=== PATIENT | male | born 1955 | race Caucasian/White ===

== ENCOUNTER 2017-07-26 22:35 | Observation (INO) | payer MEDICAID ==
[2017-07-26] MEDS ORDERED: NS 1,000 ML IV ONE (22:39)
[2017-07-26] MEDS ORDERED: TDAP ADULT 0.5 ML INJ (BOOSTRIX) IM ONE (22:44)
[2017-07-26 22:47] LABS: PLATELET COUNT 281 10^3/uL (150-400)
--- NOTE | 2017-07-26 22:48 | CPEKG ---
Heart Rate: 99 RR Interval: 606 P-R Interval: 180 QRSD Interval: 90 QT Interval: 388 QTC Interval: 498 P Homeworth: 59 QRS [place]: 58 T Wave Home[place]: 42 EKG Severity - BORDERLINE ECG - EKG Impression: SINUS RHYTHM EKG Impression: BORDERLINE PROLONGED QT INTERVAL Electronically Signed By: Krysta Velasquez 28-Jul-2017 05:52:54
--- NOTE | 2017-07-26 23:29 | EDPHY ---
H & P Stated Complaint: mechanical fall +LOC Time Seen by Provider: 07/26/17 22:38 HPI/ROS: HPI The patient presents with 2 falls which occurred just prior to arrival, he is brought in by ambulance from the [facility] where he is lives for the last 4 years. He does admit to drinking alcohol tonight and had a fall which occurred by the bunk beds which was witnessed. It is unclear if there was loss of consciousness. He had a 2nd fall while using the bathroom which was associated with loss of consciousness shortly thereafter. Upon arrival of the medics, patient's blood pressure was 70s over palp. He was started on a L of normal saline. Denies any headache, neck pain, fever. He says in general, he has been feeling dizzy and lightheaded for the last several weeks. He has not had much to eat or drink today besides alcohol. REVIEW OF SYSTEMS Constitutional: No fever, no chills. Eyes: No discharge. ENT: No sore throat. Cardiovascular: No chest pain, no palpitations. Respiratory: No cough, no shortness of breath. Gastrointestinal: No abdominal pain, no vomiting. Genitourinary: No hematuria. Musculoskeletal: No back pain. Skin: No rashes. Neurological: No headache. PMHx: Hypertension, BPH, attention deficit hyperactivity disorder; he is on an antihypertensive, does not recall the name, he is on medication for BPH, no history of alcohol withdrawal Soc Hx: Homeless, lives at the [facility] for years he says, drinks alcohol daily, 5 drinks today PHYSICAL General Appearance: Alert, disheveled, poor hygiene Head: There is a 2.5 cm oblique laceration of the right forehead Eyes: Pupils equal and round no pallor or injection ENT, Mouth: Mucous membranes dry Respiratory: There are no retractions, lungs are clear to auscultation Cardiovascular: Regular rate and rhythm Gastrointestinal: Abdomen is soft and non-tender, no masses, bowel sounds normal Neurological: A&O, moves all extremities Skin: Warm and dry, excoriations to both upper extremities Musculoskeletal: Neck is supple non tender Extremities: symmetrical, full range of motion Psychiatric: Patient is oriented X 3, there is no agitation Source: Patient, EMS Exam Limitations: Intoxication - Personal History Current Tetanus/Diphtheria Vaccine: Unsure Current Tetanus Diphtheria and Acellular Pertussis (TDAP): Unsure - Medical/Surgical History Hx Asthma: No Hx Chronic Respiratory Disease: No Hx Diabetes: No Hx Cardiac Disease: No Hx Renal Disease: No Hx Cirrhosis: No Hx Alcoholism: No Hx HIV/AIDS: No Hx Splenectomy or Spleen Trauma: No - Social History Smoking Status: Current every day smoker Constitutional: Initial Vital Signs Temperature (C) 36.8 C 07/26/17 22:36 Heart Rate 101 H 07/26/17 22:36 Respiratory Rate 20 07/26/17 22:36 Blood Pressure 95/69 L 07/26/17 22:36 O2 Sat (%) 94 07/26/17 22:36 O2 Delivery Mode Room Air Allergies/Adverse Reactions: No Known Allergies Allergy (Unverified 01/22/16 11:26) Medical Decision Making - Diagnostics EKG Interpretation: EKG: Complete interpretation has been separately recorded in the [facility] archive. Summary impression: Normal sinus rhythm with QTC of approximately 460 Imaging Results: Imaging Impressions Chest X-Ray 07/26/17 22:38 Impression: Shallow inspiration. Chest negative for acute cardiopulmonary abnormality. Head CT 07/26/17 22:53 Impression: 1. Negative for intracranial hemorrhage. 2. Mild atrophy and probable white matter small vessel ischemic disease. A preliminary report was called to the emergency department at 2320 hours Imaging: Discussed imaging studies w/ call specialist Radiologist, I viewed and interpreted images myself Procedures: LACERATION REPAIR Procedure: Laceration repair. Verbal consent was obtained from the patient. The linear 2.5 cm laceration on the right forehead was anesthetized using bupivacaine with epinephrine. The wound was scrubbed, draped and explored to its base with a gloved finger. There were no deep structures involved. No tendon injury was identified. . The wound was repaired with a combination of simple interrupted and horizontal mattress sutures using 5-0 nylon. The wound repair was simple. The procedure was performed by myself. Differential Diagnosis: This is a 62-year-old male with history of alcohol abuse, hypertension, BPH, homelessness who presents brought in by ambulance from the [facility] for 2 falls which occurred just prior to arrival. Patient is unclear if he lost consciousness though cannot recall details of the events so this is suspicious for syncope versus seizure. However 1st event was witnessed and there was no seizure-like activity. He does report feeling lightheaded for the last several weeks. Differential diagnosis includes vasovagal syncope, arrhythmia, dehydration, infection, medication affect. He is on an antihypertensive and initial blood pressure was quite low in the 70 systolic. He is also on something for BPH which could be lowering his blood pressure as well. In the emergency department, I met the paramedics at the bedside to obtain their report. Patient was given 1 L of normal saline. Labs were checked and did reveal hyponatremia and hypochloremia. This could be related to hydrochlorothiazide use, however patient is not sure of his medications. Could also be related to dehydration. Glucose was slightly low at 60s so we gave him something to eat. EKG shows QT prolonged, this could also be the source of his ALOC from arrhythmia leading to syncope. CT scan of his head was unremarkable. He will be admitted. I have the discussed the case with Dr. Jordan who will admit the patient. - Data Points Laboratory Results: Laboratory Results 07/26/17 22:40 07/26/17 22:40 07/26/17 07/26/17 07/26/17 23:35 23:35 22:40 WBC RBC Hgb Hct MCV MCH MCHC RDW Plt Count MPV Neut % (Auto) Lymph % (Auto) [place] % (Auto) Eos % (Auto) Baso % (Auto) Nucleat RBC Rel Count Absolute Neuts (auto) Absolute Lymphs (auto) Absolute Monos (auto) Absolute Eos (auto) Absolute Basos (auto) Absolute Nucleated RBC Immature Gran % Immature Gran # Sodium 126 mEq/L L mEq/L (135-145) Potassium 4.1 mEq/L mEq/L (3.5-5.2) Chloride 88 mEq/L L mEq/L (97-110) Carbon Dioxide 28 mEq/l mEq/l (22-31) Anion Gap 10 mEq/L mEq/L (8-16) BUN 9 mg/dL mg/dL (7-23) Creatinine 1.0 mg/dL mg/dL (0.7-1.3) Estimated GFR > 60 Glucose 64 mg/dL L mg/dL (70-100) Calcium 8.7 mg/dL mg/dL (8.5-10.4) Total Bilirubin 0.3 mg/dL mg/dL (0.1-1.4) AST 71 IU/L H IU/L (17-59) ALT 40 IU/L IU/L (21-72) Alkaline Phosphatase 44 IU/L IU/L (38-126) Total Protein 5.5 g/dL L g/dL (6.3-8.2) Albumin 3.4 g/dL L g/dL (3.5-5.0) Urine Color PALE YELLOW Urine Appearance CLEAR Urine pH 7.0 (5.0-7.5) Ur Specific [place] 1.004 (1.002-1.030) Urine Protein NEGATIVE (NEGATIVE) Urine Ketones NEGATIVE (NEGATIVE) Urine Blood NEGATIVE (NEGATIVE) Urine Nitrate NEGATIVE (NEGATIVE) Urine Bilirubin NEGATIVE (NEGATIVE) Urine Urobilinogen NEGATIVE EU EU (0.2-1.0) Ur Leukocyte Esterase NEGATIVE (NEGATIVE) Urine Osmolality 197 mosmo/kg L mosmo/kg (300-900) Ur Random Creatinine 38.7 mg/dL mg/dL Ur Random Sodium 36 mEq/L mEq/L (30-90) Urine Glucose NEGATIVE (NEGATIVE) Urine Opiates Screen NEGATIVE ng/mL ng/mL (NEGATIVE) Urine Barbiturates NEGATIVE ng/mL ng/mL (NEGATIVE) Ur Phencyclidine Scrn NEGATIVE ng/mL ng/mL (NEGATIVE) Ur Amphetamines Screen NEGATIVE ng/mL ng/mL (NEGATIVE) U Benzodiazepines Scrn NEGATIVE ng/mL ng/mL (NEGATIVE) Urine Cocaine Screen NEGATIVE ng/mL ng/mL (NEGATIVE) U Marijuana (THC) Screen 668 ng/mL ng/mL (NEGATIVE) Ethyl Alcohol 151 mg/dL H mg/dL (0-10) 07/26/17 22:40 WBC 8.23 10^3/uL 10^3/uL (3.80-9.50) RBC 3.84 10^6/uL L 10^6/uL (4.40-6.38) Hgb 12.4 g/dL L g/dL (13.7-17.5) Hct 34.6 % L % (40.0-51.0) MCV 90.1 fL fL (81.5-99.8) MCH 32.3 pg pg (27.9-34.1) MCHC 35.8 g/dL g/dL (32.4-36.7) RDW 12.4 % % (11.5-15.2) Plt Count 281 10^3/uL 10^3/uL (150-400) MPV 9.9 fL fL (8.7-11.7) Neut % (Auto) 63.9 % % (39.3-74.2) Lymph % (Auto) 20.0 % % (15.0-45.0) [place] % (Auto) 8.4 % % (4.5-13.0) Eos % (Auto) 6.4 % % (0.6-7.6) Baso % (Auto) 0.7 % % (0.3-1.7) Nucleat RBC Rel Count 0.0 % % (0.0-0.2) Absolute Neuts (auto) 5.25 10^3/uL 10^3/uL (1.70-6.50) Absolute Lymphs (auto) 1.65 10^3/uL 10^3/uL (1.00-3.00) Absolute Monos (auto) 0.69 10^3/uL 10^3/uL (0.30-0.80) Absolute Eos (auto) 0.53 10^3/uL H 10^3/uL (0.03-0.40) Absolute Basos (auto) 0.06 10^3/uL 10^3/uL (0.02-0.10) Absolute Nucleated RBC 0.00 10^3/uL 10^3/uL (0-0.01) Immature Gran % 0.6 % % (0.0-1.1) Immature Gran # 0.05 10^3/uL 10^3/uL (0.00-0.10) Sodium Potassium Chloride Carbon Dioxide Anion Gap BUN Creatinine Estimated GFR Glucose Calcium Total Bilirubin AST ALT Alkaline Phosphatase Total Protein Albumin Urine Color Urine Appearance Urine pH Ur Specific [place] Urine Protein Urine Ketones Urine Blood Urine Nitrate Urine Bilirubin Urine Urobilinogen Ur Leukocyte Esterase Urine Osmolality Ur Random Creatinine Ur Random Sodium Urine Glucose Urine Opiates Screen Urine Barbiturates Ur Phencyclidine Scrn Ur Amphetamines Screen U Benzodiazepines Scrn Urine Cocaine Screen U Marijuana (THC) Screen Ethyl Alcohol Medications Given: Melatonin (Melatonin) 3 mg PO HS PRN PRN Reason: Sleep/Insomnia Stop: 01/23/18 02:07 Last Admin: 07/27/17 02:27 Dose: 3 mg Thiamine HCl (Vitamin B-1) 100 mg PO DAILY EVA Stop: 01/23/18 00:59 Last Admin: 07/27/17 02:27 Dose: 100 mg Discontinued Medications Diphtheria/Tetanus/Acell Pertussis (Boostrix) 0.5 ml IM .ONCE ONE Stop: 07/26/17 22:45 Last Admin: 07/26/17 22:48 Dose: 0.5 ml Sodium Chloride (Ns) 1,000 mls @ 0 mls/hr IV EDNOW ONE; Wide Open PRN Reason: Protocol Stop: 07/26/17 22:40 Last Admin: 07/26/17 22:42 Dose: 1,000 mls Departure - Departure Disposition: [facility]patient Acute Clinical Impression: Hyponatremia, Hypochloremia, QT prolongation Alcohol intoxication Qualifiers: Complication of substance-induced condition: uncomplicated Qualified Code(s): F10.920 - Alcohol use, unspecified with intoxication, uncomplicated Syncope Qualifiers: Syncope type: unspecified Qualified Code(s): R55 - Syncope and collapse Forehead laceration Qualifiers: Encounter type: initial encounter Qualified Code(s): S01.81XA - Laceration without foreign body of other part of head, initial encounter Condition: Fair
[2017-07-27] MEDS ORDERED: ACETAMINOPHEN 325 MG TAB PO PRN (00:05)
[2017-07-27] MEDS ORDERED: ONDANSETRON 4 MG/2 ML VIAL IVP PRN (00:05)
[2017-07-27] MEDS ORDERED: ONDANSETRON DISINTEGRATING 4 MG TAB PO PRN (00:05)
--- NOTE | 2017-07-27 00:33 | PDGENHP ---
History and Physical - Chief Complaint Syncope - History of Present Illness 62 yo M w/ hx of HTN, depression, and ETOH abuse presents after syncope. Patient was brought in by EMS from the longterm after witnessed syncopal event. Patient does not remember the event but does recall riding in the ambulance. He admits to having 3 shots and a few beers prior to the episode. He tells me he usually doesn't drink liquor and that he doesn't handle it well. He explains he has had a similar episode after drinking liquor before. In the ED work-up was notable for hypoglycemia and hyponatremia. CTH without acute changes. Patient is being admitted for observation. History Information - Allergies/Home Medication List Allergies/Adverse Reactions: No Known Allergies Allergy (Unverified 01/22/16 11:26) I have personally reviewed and updated: family history, medical history - Past Medical History hypertension - Surgical History Reports: no pertinent surgical hx - Family History Positive for: CAD, stroke - Social History Smoking Status: Current every day smoker Review of Systems Review of Systems: ROS: 10pt was reviewed & negative except for what was stated in HPI & below Physical Exam Physical Exam: Temp Pulse Resp BP Pulse Ox 36.8 C 101 H 20 95/69 L 94 07/26/17 22:36 07/26/17 22:36 07/26/17 22:36 07/26/17 22:36 07/26/17 22:36 Constitutional: not in pain, unkempt Eyes: PERRL, EOMI Ears, Nose, Mouth, Throat: moist mucous membranes, no oral mucosal ulcers Cardiovascular: regular rate and rhythym, no murmur, rub, or gallop Respiratory: no respiratory distress, clear to auscultation Gastrointestinal: normoactive bowel sounds, soft, non-tender abdomen Skin: warm, normal color Musculoskeletal: full muscle strength, no muscle tenderness Neurologic: AAOx3, CN II-XII Intact Psychiatric: interacting appropriately, not anxious Lab Data & Imaging Review 07/26/17 22:40 07/26/17 22:40 WBC 8.23 10^3/uL (3.80-9.50) 07/26/17 22:40 RBC 3.84 10^6/uL (4.40-6.38) L 07/26/17 22:40 Hgb 12.4 g/dL (13.7-17.5) L 07/26/17 22:40 Hct 34.6 % (40.0-51.0) L 07/26/17 22:40 MCV 90.1 fL (81.5-99.8) 07/26/17 22:40 MCH 32.3 pg (27.9-34.1) 07/26/17 22:40 MCHC 35.8 g/dL (32.4-36.7) 07/26/17 22:40 RDW 12.4 % (11.5-15.2) 07/26/17 22:40 Plt Count 281 10^3/uL (150-400) 07/26/17 22:40 MPV 9.9 fL (8.7-11.7) 07/26/17 22:40 Neut % (Auto) 63.9 % (39.3-74.2) 07/26/17 22:40 Lymph % (Auto) 20.0 % (15.0-45.0) 07/26/17 22:40 [place] % (Auto) 8.4 % (4.5-13.0) 07/26/17 22:40 Eos % (Auto) 6.4 % (0.6-7.6) 07/26/17:40 Baso % (Auto) 0.7 % (0.3-1.7) 07/26/17:40 Nucleat RBC Rel Count 0.0 % (0.0-0.2) 07/26/17 22:40 Absolute Neuts (auto) 5.25 10^3/uL (1.70-6.50) 07/26/17 22:40 Absolute Lymphs (auto) 1.65 10^3/uL (1.00-3.00) 07/26/17 22:40 Absolute Monos (auto) 0.69 10^3/uL (0.30-0.80) 07/26/17 22:40 Absolute Eos (auto) 0.53 10^3/uL (0.03-0.40) H 07/26/17 22:40 Absolute Basos (auto) 0.06 10^3/uL (0.02-0.10) 07/26/17 22:40 Absolute Nucleated RBC 0.00 10^3/uL (0-0.01) 07/26/17 22:40 Immature Gran % 0.6 % (0.0-1.1) 07/26/17 22:40 Immature Gran # 0.05 10^3/uL (0.00-0.10) 07/26/17 22:40 Sodium 126 mEq/L (135-145) L 07/26/17 22:40 Potassium 4.1 mEq/L (3.5-5.2) 07/26/17 22:40 Chloride 88 mEq/L (97-110) L 07/26/17 22:40 Carbon Dioxide 28 mEq/l (22-31) 07/26/17 22:40 Anion Gap 10 mEq/L (8-16) 07/26/17 22:40 BUN 9 mg/dL (7-23) 07/26/17 22:40 Creatinine 1.0 mg/dL (0.7-1.3) 07/26/17 22:40 Estimated GFR > 60 07/26/17 22:40 Glucose 64 mg/dL (70-100) L 07/26/17 22:40 Calcium 8.7 mg/dL (8.5-10.4) 07/26/17 22:40 Total Bilirubin 0.3 mg/dL (0.1-1.4) 07/26/17 22:40 AST 71 IU/L (17-59) H 07/26/17 22:40 ALT 40 IU/L (21-72) 07/26/17 22:40 Alkaline Phosphatase 44 IU/L (38-126) 07/26/17 22:40 Total Protein 5.5 g/dL (6.3-8.2) L 07/26/17 22:40 Albumin 3.4 g/dL (3.5-5.0) L 07/26/17 22:40 Urine Color PALE YELLOW 07/26/17 23:35 Urine Appearance CLEAR 07/26/17 23:35 Urine pH 7.0 (5.0-7.5) 07/26/17 23:35 Ur Specific [place] 1.004 (1.002-1.030) 07/26/17 23:35 Urine Protein NEGATIVE (NEGATIVE) 07/26/17 23:35 Urine Ketones NEGATIVE (NEGATIVE) 07/26/17 23:35 Urine Blood NEGATIVE (NEGATIVE) 07/26/17 23:35 Urine Nitrate NEGATIVE (NEGATIVE) 07/26/17 23:35 Urine Bilirubin NEGATIVE (NEGATIVE) 07/26/17 23:35 Urine Urobilinogen NEGATIVE EU (0.2-1.0) 07/26/17 23:35 Ur Leukocyte Esterase NEGATIVE (NEGATIVE) 07/26/17 23:35 Urine Glucose NEGATIVE (NEGATIVE) 07/26/17 23:35 Ethyl Alcohol 151 mg/dL (0-10) H 07/26/17 22:40 Imaging Review: Imaging Impressions Chest X-Ray 07/26/17 22:38 Impression: Shallow inspiration. Chest negative for acute cardiopulmonary abnormality. Head CT 07/26/17 22:53 Impression: 1. Negative for intracranial hemorrhage. 2. Mild atrophy and probable white matter small vessel ischemic disease. A preliminary report was called to the emergency department at 2320 hours Visualized and Interpreted EKG results: Yes EKG Interpretation: Positive for: normal sinsus rhythm, other (QTC 498) Assessment & Plan Assessment: 62 yo M w/ HTN, depression, and ETOH abuse presents after syncopal event. Plan: 1. Syncope - Most likely multifactorial from ETOH, mild hypoglycemia, and dehydration. Patient states he does not handle liquor well and he had 3 shots along with his usual 2-3 beers this evening. CTH without acute intracranial abnormality. WELLS score of 0 so doubt PE. - Admit for observation, monitor on telemetry - R forehead lac s/p repair - S/p 1 L IVF, proceed cautiously noting hyponatremia - Orthostatic VS x1 - PT/OT evaluations 2. Hyponatremia - Serum Na 126 on admission. Etiology is likely hypovolemic w/ contribution from low solute intake in the setting of ETOH abuse and poor PO intake. - S/p 1 L NS by EMS - Will recheck BMP now to monitor rate of correction - Check OSMs and urine lytes 3. ETOH abuse - Drinks several beers daily but denies hx of ETOH withdrawal, he has no signs of this currently. - Monitor for signs of withdrawal, will not order CIWA now - Monitor electrolytes including Mg, Ph - Thiamine, MVI, folate 4. Normocytic anemia - Will check ferritin and B12. Diet - Regular Code - Full Ppx - LMWH Dispo - Admit under observation status
[2017-07-27] MEDS ORDERED: MELATONIN 3 MG TAB PO PRN (02:08)
[2017-07-27] MEDS: THIAMINE HCL 100 MG TAB PO SCH ×2 (02:27→09:01)
[2017-07-27 04:59] LABS: PLATELET COUNT 257 10^3/uL (150-400)
--- NOTE | 2017-07-27 08:50 | HOSPPROG ---
Hospitalist Progress Note Assessment/Plan: 62 yo M w/ HTN, depression, and ETOH abuse presents after syncopal event. *syncope -suspect multifactorial. He had 3 shots of alcohol with his usual 2-3 beers -had a low sodium level -CT of the head shows nothing acute -orthostatics show compensation with tachycardia when he does stand -reviewed telemetry, he has ongoing sinus tachycardia *head laceration s/p repair -has a few stitches/ will have him f/u in ER to assure healing in 10 days * hyponatremia -improved w hydration, starting to eat and drink this morning * alcohol abuse -drings beer daily, avoids hard liquor *right eye, conjunctivitis -said he has had this for several days -start treatment w erythromycin *homelessness *Plan: dc later today when warmer i & f he is eating and drinking Subjective: Kahlil has no complaints. Objective: Vital Signs Temp Pulse Resp BP Pulse Ox 37.1 C 102 H 18 147/99 H 96 07/27/17 08:00 07/27/17 08:00 07/27/17 08:00 07/27/17 08:00 07/27/17 08:00 Laboratory Results 07/27/17 04:36 07/27/17 04:36 07/26/17 07/27/17 07/28/17 05:59 05:59 05:59 Intake Total 240 Output Total 200 Balance 40 - Physical Exam Constitutional: chronically ill appearing, unkempt, other (thin) Eyes: other (right eye at base with yellow drainage and red) Ears, Nose, Mouth, Throat: hearing normal Cardiovascular: regular rate and rhythym, tachycardia Respiratory: no respiratory distress Skin: warm Neurologic: AAOx3 Psychiatric: interacting appropriately ICD10 Worksheet Patient Problems: Problems Problem Status Onset Alcohol intoxication Acute Forehead laceration Acute Hypochloremia Acute Hyponatremia Acute QT prolongation Acute Syncope Acute
[2017-07-27] MEDS ORDERED: FOLIC ACID 1 MG TAB PO SCH (09:00)
[2017-07-27] MEDS ORDERED: FLUTICASONE NASAL 120 SPRAYS/16 GM MDI EACHNARE SCH (09:00)
[2017-07-27] MEDS ORDERED: FINASTERIDE 5 MG TAB PO SCH (09:00)
[2017-07-27] MEDS ORDERED: ENOXAPARIN 40 MG/0.4 ML SYR SC SCH (09:00)
[2017-07-27] MEDS ORDERED: MULTIVITAMINS 1 EACH TAB PO SCH (09:00)
[2017-07-27 11:34] VITALS: BP 145/99
[2017-07-27] MEDS: ERYTHROMYCIN 0.5% 1 GM OPHT.OINT RTEYE SCH ×2 (12:11→12:14)
--- NOTE | 2017-07-27 14:43 | ASMTCMCOM ---
CM Note CM Note Notes: Met with pt, will discharge back to the [facility]. CM reserved bed, pt will let me know if he wants a cab there, otherwise he does have a bus pass. DC Plan: Intermediate Date Signed: 07/27/2017 02:42 PM Electronically Signed By:Tiara Donahue RN
--- NOTE | 2017-07-27 14:52 | ASMTLACE ---
LACE Length of stay for Answers: Less than 1 day current admission Acuity / Level of Answers: No Care: Did the patient have an inpatient admission? Comorbidities - select Answers: Other Notes: HTN, all that apply # of Emergency department Answers: 1-2 visits in the last 6 months Social determinants Answers: History of substance abuse (ETOH, street drugs, prescription drugs, etc.) Mental health diagnosis (anxiety, depression, pers onality disorders, etc.) Lack of community resources and/or lack of social support (no pcp, lives alone, transportation, jojo d) Score: 12 Date Signed: 07/27/2017 02:51 PM Electronically Signed By:Tiara Donahue RN
--- NOTE | 2017-07-27 19:59 | GDS ---
[f rep st] DISCHARGE SUMMARY DISCHARGE DIAGNOSES: 1. Syncopal event. 2. Head laceration, status post repair. 3. Hyponatremia. 4. Alcohol abuse. 5. Conjunctivitis to his right eye. 6. Homelessness. HISTORY OF PRESENT ILLNESS: Briefly the patient is a 62-year-old male with history of hypertension, depression, and alcohol abuse. He presented after he had a syncopal event. The patient describes that he drinks beer frequently, but he had several shots, and he says this has a negative impact on him when he does both. HOSPITAL COURSE: 1. Syncope. I suspect this is multifactorial. His sodium level is low. His orthostatics show compensation. He has had ongoing sinus tachycardia secondary to his alcohol withdrawal. He has been walking and has had no further episodes. 2. Head laceration. This is status post repair. He has a few stitches. He has been instructed to return to the emergency department for removal. 3. Hyponatremia, improved with hydration. I suspect he was extremely dehydrated. I recommended that he hold his diuretic when he is not eating and drinking well. 4. Alcohol abuse. He drinks beer daily. He says when he drinks hard liquor he has had syncope before. 5. Right eye conjunctivitis. He said this has been going on for several days. I have started him on treatment and have recommended that he follow up with [facility]. DISCHARGE CONDITION: Stable. Blood pressure is 145/99. Heart rate of 103. Respiratory rate is 16. O2 saturations on 2 L are 96%. Temperature is 37.1 Celsius. MEDICATIONS AT DISCHARGE: Please see the EMR. DISCHARGE INSTRUCTIONS: 1. To hold his hydrochlorothiazide for the next few days until he is more hydrated. 2. Continue eye ointment on his right eye and follow up with his doctor. 3. Stitches need to be removed in 5 days on August 01. He can return to the ER, triage status or see his regular doctor at [facility]. Copy requested to: [facility] /[id number]/MODL MTDD
--- NOTE | 2017-07-27 20:04 | GDS ---
[f rep st] DISCHARGE SUMMARY DISCHARGE DIAGNOSES: 1. Syncopal event. 2. Head laceration, status post repair. 3. Hyponatremia. 4. Alcohol abuse. 5. Conjunctivitis to his right eye. 6. Homelessness. HISTORY OF PRESENT ILLNESS: Briefly the patient is a 62-year-old male with history of hypertension, depression, and alcohol abuse. He presented after he had a syncopal event. The patient describes th at he drinks beer frequently, but he had several shots, and he says this has a negative impact on him when he does both. HOSPITAL COURSE: Syncope. I suspect this is multifactorial. His sodium level is low. His orthosta tics showed compensation. He becomes tachycardic when he stands. Reviewed the patient monitor. Jonathon sparrow has had ongoing sinus tachycardia secondary to his alcohol withdrawal. He is doing well. He has b een walking and has had no further episodes. Head laceration. This is status post repair. He has a few stitches. He has been instructed to retu rn to the emergency department for removal. Hyponatremia, improved with hydration. I suspect he was extremely dehydrated. Recommended that he h old his diuretic when he is not eating and drinking well. Alcohol abuse. He drinks beer daily. He says when he drinks hard liquor he has had syncope before. Right eye. This has conjunctivitis. He said this has been going on for several days. I have starte d him on treatment and have [facility] DISCHARGE CONDITION: Stable. Blood pressure is 145/99, heart rate of 103, respiratory rate is 16, O 2 sats on 2 L are 96%. Temperature is 37.1 Celsius. MEDICATIONS AT DISCHARGE: Please see the EMR. DISCHARGE INSTRUCTIONS: 1. To hold his hydrochlorothiazide for the next few days until he is more hydrated. 2. Continue eye ointment on his right eye and follow up with his doctor. 3. Stitches need to be removed in 5 days on Monday, August 01. He can return to the ER, triage sta or [facility]. [facility]: [facility] /[id number]/MODL
== END 2017-07-27 15:20 | disposition home or self-care (01) ==
LOC: EDUNIT# → F3E 07-27 00:52
PROVIDERS: ADMIT Student in an Organized Health Care Education/Training Program; ATTEND Internal Medicine
PROC: 0HQ1XZZ Repair Face Skin, External Approach (ICD-10-PCS; principal; 2017-07-26)
DX: R55 Syncope and collapse (principal); E87.1 Hypo-osmolality and hyponatremia; S01.81XA Laceration without foreign body of other part of head, initial encounter; W19.XXXA Unspecified fall, initial encounter; Y92.89 Other specified places as the place of occurrence of the external cause; Y99.8 Other external cause status; F10.920 Alcohol use, unspecified with intoxication, uncomplicated; R40.2411 Glasgow coma scale score 13-15, in the field [EMT or ambulance]; H10.31 Unspecified acute conjunctivitis, right eye; E86.9 Volume depletion, unspecified; E16.2 Hypoglycemia, unspecified; E87.8 Other disorders of electrolyte and fluid balance, not elsewhere classified; D64.9 Anemia, unspecified; I10 Essential (primary) hypertension; F32.9 Major depressive disorder, single episode, unspecified; N40.0 Benign prostatic hyperplasia without lower urinary tract symptoms; F90.9 Attention-deficit hyperactivity disorder, unspecified type; F17.210 Nicotine dependence, cigarettes, uncomplicated; Z82.49 Family history of ischemic heart disease and other diseases of the circulatory system; Z82.3 Family history of stroke; Z59.0 Homelessness; Z23 Encounter for immunization; Y90.6 Blood alcohol level of 120-199 mg/100 ml
CPT/HCPCS: 12011; 70450; 71046; 90471; 92523; 93005; 96360; 99285; G0378; 80307; 82607-90; G0480; J1650